=== PATIENT | female | born 1980 | race Caucasian/White ===

== ENCOUNTER 2018-02-01 10:30 | Emergency (ER) | payer MEDICAID ==
[2018-02-01] MEDS: HYDROCODONE/APAP (5/325) TAB PO (10:48)
== END 2018-02-01 12:14 | disposition home or self-care (01) ==
LOC: FTE 10:30
DX: S99.922A Unspecified injury of left foot, initial encounter (principal); S99.912A Unspecified injury of left ankle, initial encounter; W10.9XXA Fall (on) (from) unspecified stairs and steps, initial encounter; Y92.9 Unspecified place or not applicable
CPT/HCPCS: 73610; 73630-LT; 99283-25